=== PATIENT | male | born 1960 | race Caucasian/White ===

== ENCOUNTER → 2021-01-29 | Outpatient (CLI) | payer OTHER ==
[2021-01-29 15:49] LABS: BUN/CREATININE RATIO 11 (0-10)
== END ==
LOC: LAB 13:40
PROVIDERS: Family Medicine
DX: E55.9 Vitamin D deficiency, unspecified (principal); E78.2 Mixed hyperlipidemia
CPT/HCPCS: 36415; 80053; 80061

== ENCOUNTER → 2021-07-11 | Outpatient (CLI) | payer OTHER ==
[2021-07-11 15:55] LABS: HEMOGLOBIN 15.5 gm/dl (14.0-17.5); RED BLOOD COUNT 5.15 M/UL (4.20-5.50); WHITE BLOOD COUNT 7.8 K/UL (4.5-11.0)
[2021-07-12 07:11] LABS: CHOLESTEROL, TOTAL 165 mg/dL (100-199); HDL CHOLESTEROL 25 mg/dL (>39); LDL CHOLESTEROL CALC 104 mg/dL (0-99); LDL/HDL RATIO 4.2 ratio (0.0-3.6); T. CHOL/HDL RATIO 6.6 ratio (0.0-5.0); TRIGLYCERIDES 207 mg/dL (0-149)
[2021-07-12 08:15] LABS: ALKALINE PHOSPHATASE, S 77 IU/L (44-121); ALT (SGPT) 38 IU/L (0-44); AST (SGOT) 48 IU/L (0-40); BILIRUBIN, TOTAL 0.7 mg/dL (0.0-1.2); BUN 16 mg/dL (8-27); BUN/CREATININE RATIO 13 (10-24); CALCIUM, SERUM 8.8 mg/dL (8.6-10.2); CARBON DIOXIDE, TOTAL 21 mmol/L (20-29); CHLORIDE, SERUM 106 mmol/L (96-106); CREATININE, SERUM 1.22 mg/dL (0.76-1.27); EGFR IF AFRICN AM 74 (>59); EGFR IF NONAFRICN AM 64 (>59); GLOBULIN, TOTAL 3.9 g/dL (1.5-4.5); GLUCOSE, SERUM 111 mg/dL (65-99); POTASSIUM, SERUM 4.4 mmol/L (3.5-5.2); PROTEIN, TOTAL, SERUM 7.9 g/dL (6.0-8.5); SODIUM, SERUM 140 mmol/L (134-144); VITAMIN D, 25-HYDROXY 34.1 ng/mL (30.0-100.0)
== END ==
LOC: LAB 15:35
PROVIDERS: Family Medicine
DX: E78.2 Mixed hyperlipidemia (principal); E55.9 Vitamin D deficiency, unspecified
CPT/HCPCS: 36415; 80053; 80061; 85027

== ENCOUNTER → 2021-11-15 | Outpatient (CLI) | payer OTHER | LOC: KOH-I 10-26 08:00 | DX: R79.89 Other specified abnormal findings of blood chemistry (principal); K76.0 Fatty (change of) liver, not elsewhere classified | CPT/HCPCS: 76700 ==